=== PATIENT | female | born 1945 | race Caucasian/White ===

== ENCOUNTER 2018-05-01 10:31 | Day surgery (SDC) | payer MEDICARE, BC ==
[2018-05-01] MEDS ORDERED: MIDAZOLAM HCL 2MG/2ML VIAL IV ONE (10:32)
[2018-05-01] MEDS ORDERED: LIDOCAINE 2% MDV (20MG/ML) 20ML VIAL IV ONE (10:32)
[2018-05-01] MEDS ORDERED: PROPOFOL 10 MG/ML VIAL IV ONE (10:32)
--- NOTE | 2018-05-02 12:30 | Operative Note ---
DATE OF SURGERY: 05/01/2018 OPERATION: COLONOSCOPY with biopsy and ink injection. PREOPERATIVE DIAGNOSIS: Right lower quadrant pain of unclear origin. POSTOPERATIVE DIAGNOSES: 1. Redundant colon. 2. Sigmoid diverticulosis. 3. Questionable descending colon polyp. PROCEDURE: After informed consent was obtained from the patient, she was placed in the left lateral decubitus position in the endoscopy suite, sedated and monitored by the department of anesthesia. Digital rectal exam was unremarkable. A well-lubricated [id number] colonoscope was inserted into the rectum and advanced to the cecum. Insertion was quite difficult due to redundancy and tortuosity of the colon. There appeared to be some poor distention of the colon at times. The preparation quality was fair to good. The cecum, terminal ileum, ascending colon, and transverse colon were unremarkable. In the descending colon, there was a questionable sessile polypoid abnormality. It was not clearly a polyp; however, it did not appear normal as well. I did obtain multiple biopsies of the area and inked just distal to the lesion. The remainder of the descending colon was unremarkable. The sigmoid colon demonstrated moderate diverticular changes. The rectum was unremarkable in forward and J-turn views. The endoscope was straightened, the rectal ampulla deflated, and the endoscope was removed. RECOMMENDATIONS: I would suggest the patient follow a high-fiber diet. Further recommendations based on tissue histology. As always, thank you for allowing me to participate in the healthcare of your patients. CC: Tea PEREZ
== END 2018-05-01 12:25 | disposition home or self-care (01) ==
LOC: HOP 10:31
PROVIDERS: ATTEND Internal Medicine Gastroenterology
DX: D12.4 Benign neoplasm of descending colon (principal); K57.30 Diverticulosis of large intestine without perforation or abscess without bleeding; Q43.8 Other specified congenital malformations of intestine; I10 Essential (primary) hypertension; E78.00 Pure hypercholesterolemia, unspecified; K21.9 Gastro-esophageal reflux disease without esophagitis; E11.9 Type 2 diabetes mellitus without complications; Z79.84 Long term (current) use of oral hypoglycemic drugs; E03.9 Hypothyroidism, unspecified; G25.81 Restless legs syndrome

== ENCOUNTER 2019-01-24 08:08 | Emergency (ER) | payer MEDICARE, BC ==
[2019-01-24 08:45] LABS: BASO % 0.2 % (0-6); EOS % 0.1 % (0-6); HEMATOCRIT 42.9 % (35.0-47.0); HEMOGLOBIN 14.6 gm/dl (11.6-16.0); MEAN CELL VOLUME 88.6 fl (81-97); MEAN CORPUSCULAR HEMOGLOBIN 30.2 pg (27-33); MONO % 6.1 % (0-9); PLATELET COUNT 247 K/uL (130-400); RED BLOOD COUNT 4.84 M/uL (3.80-5.40); RED CELL DISTRIBUTION WIDTH 13.5 % (11.5-14.5); WHITE BLOOD COUNT W/O DIFF 13.9 K/uL (4.2-12.2)
[2019-01-24 08:58] LABS: BILIRUBIN,TOTAL 0.5 mg/dL (0.2-1.0); TOTAL PROTEIN 7.5 g/dL (6.6-8.7)
[2019-01-24 08:59] LABS: INR 1.1; PARTIAL THROMBOPLASTIN TIME 26.6 SECONDS (24.5-39.1); PROTHROMBIN TIME (PATIENT) 10.6 SECONDS (9.5-12.1)
[2019-01-24 09:00] LABS: LACTIC ACID 1.4 mmol/L (0.5-2.2)
[2019-01-24 09:03] LABS: ALB/GLOB RATIO 1.4 (1.1-1.8); ALBUMIN 4.4 g/dL (4.0-5.0)
--- NOTE | 2019-01-24 09:07 | Emergency Department Record ---
History of Present Illness - General Chief Complaint: Abdominal Pain Stated Complaint: ABD PAIN W/BLOOD IN STOOLS Time Seen by Provider: 01/24/19 08:14 Source: Patient Mode of Arrival: Ambulatory Limitations: No limitations - History of Present Illness Initial Comments: pt has had 4 bloody stools since 3am. pt states that it was all blood. she has never had this happen. she had an unremarkable colonoscopy 8mos ago. she also has diffuse ap MD Complaint: Abdominal pain Onset/Timin -: Days(s) Location: LUQ, RUQ, LLQ, RLQ Severity scale (1-10): 8 Quality: Aching, Cramping Consistency: Constant, Intermittent Improves With: Nothing Worsens With: Nothing - Related Data Home Medications Medication Instructions Recorded Confirmed Last Taken Clonidine HCl 0.2 mg PO BID 01/24/19 01/24/19 1 Day Ago ~01/23/19 Felodipine [Felodipine ER] 5 mg PO DAILY 01/24/19 01/24/19 1 Day Ago ~01/23/19 Potassium Chloride 10 meq PO DAILY 01/24/19 01/24/19 1 Day Ago ~01/23/19 Allergies Allergy/AdvReac Type Severity Reaction Status Date / Time eye drops s for pressure Allergy HYPERSENSIT Uncoded 01/24/19 08:21 IVITY Travel Screening - Travel/Exposure Within Last 30 Days Have you traveled within the last 30 days?: No - Travel/Exposure Within Last Year Have you traveled outside the [place] in the last year?: No - Additonal Travel Details Have you been exposed to anyone with a communicable illness?: No - Travel Symptoms Symptom Screening: None Review of Systems Reviewed: No additional complaints except as noted below Constitutional: Reports: As per HPI. Denies: Chills, Fever, Malaise, Night sweats, Weakness, Weight change Eyes: Reports: As per HPI. Denies: Eye discharge, Eye pain, Photophobia, Vision change ENT: Reports: As per HPI. Denies: Congestion, Dental pain, Ear pain, Epistaxis , Hearing loss, Throat pain Respiratory: Reports: As per HPI. Denies: Cough, Dyspnea, Hemoptysis, Stridor, Wheezes Cardiovascular: Reports: As per HPI. Denies: Arrhythmia, Chest pain, Dyspnea on exertion, Edema, Murmurs, Orthopnea, Palpitations, Paroxysmal nocturnal dyspnea, Rheumatic Fever, Syncope Endocrine: Reports: As per HPI. Denies: Fatigue, Heat or cold intolerance, Polydipsia, Polyuria Gastrointestinal: Reports: As per HPI, Abdominal pain, Hematochezia. Denies: Constipation, Diarrhea, Hematemesis, Melena, Nausea, Vomiting Genitourinary: Reports: As per HPI. Denies: Abnormal menses, Discharge, Dyspareunia, Dysuria, Frequency, Hematuria, Incontinence, Retention, Urgency Musculoskeletal: Reports: As per HPI. Denies: Arthralgia, Back pain, Gout, Joint swelling, Myalgia, Neck pain Skin: Reports: As per HPI. Denies: Bruising, Change in color, Change in hair/ nails, Lesions, Pruritus, Rash Neurological: Reports: As per HPI. Denies: Abnormal gait, Confusion, Headache, Numbness, Paresthesias, Seizure, Tingling, Tremors, Vertigo, Weakness Psychiatric: Reports: As per HPI. Denies: Anxiety, Auditory hallucinations, Depression, Homicidal thoughts, Suicidal thoughts, Visual hallucinations Hematological/Lymphatic: Reports: As per HPI. Denies: Anemia, Blood Clots, Easy bleeding, Easy bruising, Swollen glands Past Medical History - SOCIAL HISTORY Smoking Status: Never smoker Alcohol Use: None Drug Use: None - RESPIRATORY Hx Respiratory Disorders: Yes - CARDIOVASCULAR Hx Cardio Disorders: Yes Hx Edema: Yes Hx Hypertension: Yes (well controlled with rx) Comment:: high cholesterol - NEURO Hx Neuro Disorders: No - GI Hx GI Disorders: Yes Hx Abdominal Pain: Yes (pressure x 2 weeks) Hx Reflux: Yes Hx of Polyps: Yes Comment:: diverticulosis - Hx Genitourinary Disorders: No - ENDOCRINE Hx Endocrine Disorders: Yes Hx Diabetes: Yes Hx Thyroid Disease: Yes Comment:: does not check blood sugars daily, will day of procedure - MUSCULOSKELETAL Hx Musculoskeletal Disorders: Yes Hx Arthritis: Yes (in back) - PSYCH Hx Psych Problems: No - HEMATOLOGY/ONCOLOGY Hx Hematology/Oncology Disorders: No Family Medical History Any Significant Family History?: Yes Hx Cancer: Mother *Cancer Comment: mother colon cancer, brother-lung Hx HTN: Father Hx Kidney Disease: Father Hx Resp Disorders: Brother/Sister *Resp Comment: brother- lung cancer Hx Stroke: Mother Physical Exam - General General Appearance: Alert, Oriented x3, Cooperative, Mild distress - Head Head exam: Normal inspection - Eye Eye exam: Normal appearance, PERRL, EOMI Pupils: Normal accommodation - ENT ENT exam: Normal exam, Mucous membranes moist, Normal external ear exam, Normal orophraynx Ear exam: Normal external inspection. negative: External canal tenderness Nasal Exam: Normal inspection. negative: Discharge, Sinus tenderness Mouth exam: Normal external inspection, Tongue normal Teeth exam: Normal inspection. negative: Dental caries Throat exam: Normal inspection. negative: Tonsillar erythema, Tonsillar exudate - Neck Neck exam: Normal inspection, Full ROM. negative: Tenderness - Respiratory Respiratory exam: Normal lung sounds bilaterally. negative: Respiratory distress - Cardiovascular Cardiovascular Exam: Normal rhythm, Normal heart sounds, Tachycardia - GI/Abdominal GI/Abdominal exam: Soft, Normal bowel sounds, Tenderness - Rectal Rectal exam: Bloody stool, Heme (+) stool - exam: Deferred - Extremities Extremities exam: Normal inspection, Full ROM, Normal capillary refill. negative: Tenderness - Back Back exam: Reports: Normal inspection, Full ROM. Denies: Muscle spasm, Rash noted, Tenderness - Neurological Neurological exam: Alert, CN II-XII intact, Normal gait, Oriented X3 - Psychiatric Psychiatric exam: Normal affect, Normal mood - Skin Skin exam: Dry, Intact, Normal color, Warm Course Vital Signs 01/24/19 08:26 Temperature 98.2 F Pulse Rate [ 108 H Pulse Ox Probe] Respiratory 16 Rate Blood Pressure 190/108 [Left Arm] Pulse Ox 97 Medical Decision Making - Lab Data Result diagrams: 01/24/19 08:35 01/24/19 08:35 Lab Results 01/24/19 01/24/19 Range/Units 08:35 08:35 WBC 13.9 H (4.2-12.2) K/uL RBC 4.84 (3.80-5.40) M/uL Hgb 14.6 (11.6-16.0) gm/dl Hct 42.9 (35.0-47.0) % MCV 88.6 (81-97) fl MCH 30.2 (27-33) pg MCHC 34.0 (32-36) g/dl RDW 13.5 (11.5-14.5) % Plt Count 247 (130-400) K/uL MPV 10.0 (7.4-10.4) fl Lymphocytes % 6.0 L (16-45) % Monocytes % 6.1 (0-9) % Eosinophils % 0.1 (0-6) % Basophils % 0.2 (0-6) % Sodium 140 (136-145) mmol/L Potassium 3.7 (3.4-4.5) mmol/L Chloride 101 (98-107) mmol/L Carbon Dioxide 22.0 (22-29) mmol/L Anion Gap 17.0 H (7-16) BUN 20 (8-23) mg/dL Creatinine 1.0 H (0.5-0.9) mg/dL Estimated GFR 58 mL/min Calcium 9.6 (8.8-10.2) mg/dL Total Bilirubin 0.50 (0.2-1.0) mg/dL Total Protein 7.5 (6.6-8.7) g/dL Disposition Disposition: Transfer Clinical Impression: Lower GI bleed Disposition: Acute Care Hospital Transfer Transfer To: [facility] Reason For Transfer: needs GI Accepting Physician: dr pa Time Discussed w/Accepting Physician: 11:13 Forms: Patient Portal Access Quality - Quality Measures Quality Measures: N/A - Blood Pressure Screening Does Patient Have Any of the Following: No Blood Pressure Classification: Pre-Hypertensive BP Reading Systolic Measurement: 158 Diastolic Measurement: 89 Screening for High Blood Pressure: < Pre-Hypertensive BP, F/U Documented > [ [id number]] Pre-Hypertensive Follow-up Interventions: Follow-up with rescreen every year.
[2019-01-24] MEDS ORDERED: MORPHINE SULFATE 10 MG/ML VIAL IVP ONE (13:49)
== END 2019-01-24 14:17 | disposition short-term general hospital (02) ==
LOC: ER 08:08
DX: K92.1 Melena (principal); R10.84 Generalized abdominal pain; E11.9 Type 2 diabetes mellitus without complications; I10 Essential (primary) hypertension
CPT/HCPCS: 99285 ×2; 96374; 83605; 85730; 85610; 80053; 85027; J2270

== ENCOUNTER 2019-06-11 08:16 | Day surgery (SDC) | payer MEDICARE, BC ==
[2019-06-11] MEDS ORDERED: PROPOFOL 10 MG/ML VIAL IV ONE (08:17)
[2019-06-11] MEDS ORDERED: LIDOCAINE 2% MDV (20MG/ML) 20ML VIAL IV ONE (08:17)
--- NOTE | 2019-06-12 09:00 | Operative Note ---
OPERATION: COLONOSCOPY with photo. PREOPERATIVE DIAGNOSIS: History of descending colon polyp with a history of a fair prep. POSTOPERATIVE DIAGNOSES: 1. Moderately severe sigmoid diverticulosis. 2. No residual polyp seen in descending colon. PROCEDURE: After informed consent was obtained from the patient, she was placed in the left lateral decubitus position in the endoscopy suite, sedated and monitored by the department of anesthesia. Digital rectal exam was unremarkable. A well-lubricated [id number] colonoscope was inserted into the rectum and advanced to the cecum. Preparation quality was good. The cecum, cecal bulb, ileocecal valve, appendiceal orifice, ascending colon, and transverse colon were unremarkable. In the descending colon, there was noted to be ink from previous injection. No residual polyp was noted. The sigmoid colon demonstrated moderately severe diverticulosis. No polyps were seen. The rectum was unremarkable in forward and J-turn views. The endoscope was then straightened, the rectal ampulla deflated, and the endoscope was removed. RECOMMENDATIONS: The patient should resume her medications and follow a high- fiber diet. Typically, she should undergo repeat colonoscopy in 5 years. However, given her age, she may not wish to proceed. As always, thank you for allowing me to participate in the healthcare of your patients. TREVIN
== END 2019-06-11 10:55 | disposition home or self-care (01) ==
LOC: HOP 08:16
PROVIDERS: ATTEND Internal Medicine Gastroenterology
DX: Z09 Encounter for follow-up examination after completed treatment for conditions other than malignant neoplasm (principal); Z86.010 Personal history of colon polyps; K57.30 Diverticulosis of large intestine without perforation or abscess without bleeding; E11.9 Type 2 diabetes mellitus without complications; I10 Essential (primary) hypertension; E78.00 Pure hypercholesterolemia, unspecified; E03.9 Hypothyroidism, unspecified; R60.9 Edema, unspecified; G25.81 Restless legs syndrome
CPT/HCPCS: 00812; G0105